=== PATIENT | female | born 1995 | race Caucasian/White ===

== ENCOUNTER 2024-10-12 18:38 | Emergency (ER) | payer MEDICAID ==
[~2024-10-12] VITALS: Ht 167.6 cm; Wt 120.0 kg
[2024-10-12 18:45] VITALS: O2SAT 90
[2024-10-12 18:50] VITALS: BP 0/0; PULSE 0; RESP 0; O2SAT 0
== END 2024-10-12 22:15 ==
LOC: ER 20:07
DX: I46.9 Cardiac arrest, cause unspecified (principal); E03.9 Hypothyroidism, unspecified; I49.01 Ventricular fibrillation; Z55.6 Problems related to health literacy; Z79.890 Hormone replacement therapy; Z79.899 Other long term (current) drug therapy
CPT/HCPCS: 82962; 92950; 99291